=== PATIENT | female | born 1990 | race Caucasian/White ===

== ENCOUNTER 2019-05-04 23:08 | Inpatient (IN) | payer MEDICAID, OTHER ==
[~2019-05-04] VITALS: Ht 160 cm; Wt 77.6 kg
[2019-05-05] MEDS ORDERED: IPRATROPIUM BROMIDE (0.02%) 0.5MG/2.5ML NEB HHN STA (02:12)
[2019-05-05] MEDS ORDERED: ALBUTEROL (0.083%) 2.5MG/3ML NEB HHN STA ×2 (02:12→06:49)
[2019-05-05] MEDS ORDERED: SODIUM CHLORIDE 0.9% 1,000 ML IV ONE (02:30)
[2019-05-05] MEDS ORDERED: CEFTRIAXONE 1 G PREMIX 50 ML IV ONE (02:30)
[2019-05-05] MEDS ORDERED: AZITHROMYCIN 500 MG in DEXT 5% WATER 250 ML IV ONE (02:30)
[2019-05-05 03:24] LABS: BASOPHILS % 0.4 % (0.0-2.0); EOSINOPHILS % 2.4 % (0.0-5.0); HEMATOCRIT. 32.3 % (36.0-48.0); HEMOGLOBIN. 10.5 g/dL (12.0-16.0); LYMPHOCYTES % 17.5 % (20.0-50.0); MEAN CORPUSCULAR HEMOGLOBIN 24.9 pg (28.0-32.0); MEAN CORPUSCULAR VOLUME 76.5 fL (81.0-99.0); MEAN PLATELET VOLUME 7.2 fl (7.4-10.4); NEUTROPHILS % 72.7 % (40.0-76.0); PLATELET 442 x1000/uL (130-400); RED BLOOD CELL COUNT 4.22 mill/uL (4.2-5.4); RED CELL DISTRIBUTION WIDTH 17.2 % (11.6-14.6)
[2019-05-05 03:28] LABS: CHLORIDE 109 mEq/L (98-107)
[2019-05-05] MEDS ORDERED: IPRATROPIUM/ALBUTEROL 0.5-3(2.5)MG/3ML NEB HHN PRN ×2 (06:50→09:30)
[2019-05-05] MEDS ORDERED: IPRATROPIUM BROMIDE (0.02%) 0.5MG/2.5ML NEB HHN PRN (07:00)
[2019-05-05] MEDS ORDERED: ACETAMINOPHEN 325MG TABLET PO PRN (09:30)
[2019-05-05] MEDS ORDERED: ONDANSETRON HCL 4MG/2ML INJ IV PRN (09:30)
[2019-05-05] MEDS: METHYLPREDNISOLONE SOD SUCC 40 MG/ML VIAL IV SCH ×2 (10:02→19:38)
[2019-05-05] MEDS ORDERED: IPRATROPIUM/ALBUTEROL 0.5-3(2.5)MG/3ML NEB HHN SCH (12:00)
[2019-05-05 17:00] VITALS: BP 125/76
[2019-05-05 18:00] VITALS: BP 125/82
[2019-05-05] MEDS ORDERED: FAMO20TA8 PO (19:14)
[2019-05-05 20:40] VITALS: BP 110/77
[2019-05-06] VITALS: BP 119/81
[2019-05-06] MEDS: METHYLPREDNISOLONE SOD SUCC 40 MG/ML VIAL IV SCH ×3 (02:37→17:03)
[2019-05-06 04:00] VITALS: BP 121/72
[2019-05-06] MEDS ORDERED: CEFTRIAXONE 1 G PREMIX 50 ML IV SCH (06:00)
[2019-05-06] MEDS ORDERED: AZITHROMYCIN 500 MG in DEXT 5% WATER 250 ML IV SCH (07:00)
[2019-05-06 08:28] VITALS: BP 114/80
[2019-05-06 12:11] VITALS: BP 116/82
[2019-05-06] MEDS ORDERED: LEVO750T21 MT (14:11)
[2019-05-06] MEDS ORDERED: FLUT1DIS3 INH (14:11)
[2019-05-06 15:15] VITALS: BP 124/74
[2019-05-06 16:18] VITALS: BP 124/74
== END 2019-05-06 18:44 | disposition home or self-care (01) | DRG 871 ==
LOC: ER 23:08 → 6WST 05-05 04:25 → EDBEDREQ 05-05 04:26 → EDBEDREQTM 05-05 04:26 → CANBEDREQ 05-05 14:47 → UNDOADMIN 05-05 15:43 → 6WST 05-05 15:43 → ENRESERV 05-05 16:46
PROVIDERS: ADMIT Internal Medicine; ATTEND Internal Medicine
DX: A41.9 Sepsis, unspecified organism (principal); J18.9 Pneumonia, unspecified organism; J45.901 Unspecified asthma with (acute) exacerbation; D64.9 Anemia, unspecified; E87.8 Other disorders of electrolyte and fluid balance, not elsewhere classified; Z88.6 Allergy status to analgesic agent
CPT/HCPCS: 36415; 71045; 80053; 83605; 85025; 94640; 99285; J0456; J0696; J2920; J7030; J7060